=== PATIENT | female | born 1970 | race Caucasian/White ===

== ENCOUNTER 2020-06-01 19:28 | Inpatient (IN) | payer MEDICAID, SELFPAY ==
[~2020-06-01] VITALS: Ht 167.6 cm; Wt 73.5 kg
[2020-06-01 20:36] VITALS: BP 156/93
--- NOTE | 2020-06-01 20:40 | NUR ---
SEEN AND EXAMINED BY AYDEN WITH ORDERS AND CARRIED OUT.
[2020-06-01 23:04] LABS: BASOPHILS % (AUTO) 0.2 % (0.0-2.0); EOSINOPHILS # (AUTO) 0.1 K/uL (0-0.4); EOSINOPHILS % (AUTO) 0.6 % (0.0-4.0); HEMATOCRIT 39.8 % (36-48); HEMOGLOBIN 12.8 g/dL (12.0-16.0); LYMPHOCYTES # (AUTO) 1.4 K/uL (2.5-16.5); MEAN CORPUSCULAR HEMOGLOBIN 25 pg (27-31); MEAN CORPUSCULAR HGB CONC 32 g/dL (33-37); MEAN CORPUSCULAR VOLUME 77.4 fL (80-94); MONOCYTES # (AUTO) 0.8 K/uL (0.8-1.0); MONOCYTES % (AUTO) 6.3 % (1.7-9.3); NEUTROPHILS # (AUTO) 9.7 K/uL (1.8-7.7); NEUTROPHILS % (AUTO) 80.9 % (42.2-75.2); PLATELET COUNT (AUTO) 362 K/uL (140-450); RED BLOOD CELL COUNT(AUTO) 5.14 MIL/uL (4.20-5.40); RED CELL DISTRIBUTION WIDTH 18.3 % (11.6-13.7)
--- NOTE | 2020-06-01 23:05 | NUR ---
TO BED 3
--- NOTE | 2020-06-01 23:07 | NUR ---
AMBULATED TO BR. BEST OBTAINED
[2020-06-01] MEDS ORDERED: KETOROLAC 30 MG/ML VIAL IVP ONE (23:20)
[2020-06-01] MEDS ORDERED: PROCHLORPERAZINE 5 MG TAB PO STA (23:20)
[2020-06-01] MEDS ORDERED: DEXAMETHASONE 10 MG/ML VIAL IVP STA (23:20)
--- NOTE | 2020-06-01 23:30 | NUR ---
PATIENT PRESENTS TO ED WITH C/O GENERAL WEAKNESS AND MALAISE . PT STATES COVI (+). DENIES N/V/D; SKIN IS PINK/WARM/DRY; GAIT; LUNGS CLEAR BL; HR EVEN AND REGULAR VSS; PATIENT POSITIONED FOR COMFORT; HOB ELEVATED; BEDRAILS UP X2; BED DOWN. ER MD MADE AWARE OF PT STATUS.
[2020-06-01 23:32] LABS: ALBUMIN 3.3 g/dL (3.4-5.0); CARBON DIOXIDE 24.6 mmol/L (21-32); CREATININE 0.9 mg/dL (0.6-1.3); POTASSIUM 3.6 mmol/L (3.5-5.1); TOTAL BILIRUBIN 0.3 mg/dL (0.0-1.0)
[2020-06-01] MEDS ORDERED: ASPIRIN 81 MG TAB.CHEW PO ONE (23:50)
--- NOTE | 2020-06-01 23:55 | NUR ---
20G SL ESTABLISHED LEFT HAND
--- NOTE | 2020-06-02 00:10 | NUR ---
MEDS ORDERED. IS TEARFUL. REASSURANCE GIVEN.
[2020-06-02] MEDS ORDERED: hePARIN / DEXT 5% PREMIX 250 ML IV ONE ×2 (00:30→02:05)
[2020-06-02] MEDS ORDERED: HEPARIN PER PHARMACY MC PRN ×4 (00:30→12:20)
[2020-06-02] MEDS ORDERED: POTASSIUM CHLORIDE 10 MEQ TABER PO PRN ×2 (00:40→08:35)
[2020-06-02] MEDS ORDERED: DOCUSATE SODIUM 100 MG GELCAP PO PRN (00:40)
[2020-06-02] MEDS ORDERED: ACETAMINOPHEN 325 MG TAB PO PRN (00:40)
[2020-06-02] MEDS ORDERED: ZOLPIDEM 5 MG TAB PO PRN (00:40)
[2020-06-02] MEDS ORDERED: guaiFENesin DM 200/20 MG-10 ML 10 ML UDC PO PRN (00:40)
[2020-06-02] MEDS ORDERED: ONDANSETRON 4 MG/2 ML VIAL IM/IVP PRN (00:40)
[2020-06-02] MEDS ORDERED: NITROGLYCERIN 0.4 MG TAB SL PRN (00:45)
[2020-06-02] MEDS ORDERED: ALBUTEROL HFA MDI 90 MCG/ACTUATION 8 GM INH PRN (00:50)
[2020-06-02 01:45] LABS: APPEARANCE,URINE CLEAR (CLEAR); BILIRUBIN,URINE NEGATIVE (NEGATIVE); BLOOD, URINE NEGATIVE (NEGATIVE); COLOR,URINE YELLOW (YELLOW); LEUKOCYTE ESTERASE ,URINE NEGATIVE (NEGATIVE); NITRITE, URINE NEGATIVE (NEGATIVE); UGLUCOSE NEGATIVE (NEGATIVE)
[2020-06-02 01:47] LABS: PROTHROMBIN TIME 10.1 secs (10.8-13.4)
[2020-06-02 01:55] LABS: CHOL/HDL RATIO 5.9 (1-4.5); FREE T4 (FREE THYROXINE) 1.18 ng/dL (0.76-1.46); THYROID STIMULATING HORMONE 1.13 uIU/mL (0.34-3.74)
--- NOTE | 2020-06-02 02:05 | NUR ---
REPEAT EKG IN PROGRESS
[2020-06-02 02:11] LABS: BARBITURATE, URINE NEGATIVE ng/ml (NEG <=200); BENZODIAZEPINE, URINE NEGATIVE ng/mL (NEG <=200); CANNABINOID, URINE NEGATIVE ng/mL (NEG <=50); COCAINE, URINE NEGATIVE ng/mL (NEG <=300); OPIATE, URINE NEGATIVE ng/mL (NEG <=2000); PHENCYCLIDINE SCREEN,URINE NEGATIVE ng/mL (NEG <=25)
[2020-06-02] MEDS ORDERED: hePARIN / DEXT 5% PREMIX 250 ML IV SCH ×2 (02:15→02:20)
[2020-06-02] MEDS ORDERED: cefTRIAXone 1,000 MG VIAL ONE (03:43)
[2020-06-02] MEDS: NACL 0.9% 1,000 ML IV SCH ×2 (04:00→09:38)
--- NOTE | 2020-06-02 06:00 | NUR ---
RESTING COMFORTABLY, SPEAKING ON MARY KATE PHONE. CM REMAINS SR WITHOUT ECTOPY. PT SMILING. "IM FEELING BETTER"
--- NOTE | 2020-06-02 07:00 | NUR ---
RECEIVED REPORT FROM HELEN BLANCO. AAOX4. DENIES CP, STILL COUGH.
[2020-06-02] MEDS ORDERED: MAG SULF 2000 MG/WATER PREMIX 50 ML IV PRN (08:35)
[2020-06-02] MEDS ORDERED: ASPIRIN 81 MG TAB.CHEW ONE (08:59)
[2020-06-02] MEDS: PANTOPRAZOLE 40 MG TABEC PO SCH (09:06)
[2020-06-02] MEDS: METOPROLOL 25 MG TAB PO SCH ×2 (09:06→21:39)
[2020-06-02] MEDS: ECOTRIN 81 MG TABEC PO SCH (09:06)
[2020-06-02] MEDS: ASCORBIC ACID 500 MG TAB PO SCH (09:07)
[2020-06-02] MEDS: AZITHROMYCIN 250 MG TAB PO SCH (09:07)
[2020-06-02] MEDS: ZINC SULF 220 MG CAP PO SCH (09:07)
[2020-06-02] MEDS: lisinopriL 5 MG TAB PO SCH (09:18)
--- NOTE | 2020-06-02 09:47 | NUR ---
DENIES CP AT THIS TIME.
--- NOTE | 2020-06-02 09:58 | NUR ---
TROPONIN 0.[address] NGUYEN
--- NOTE | 2020-06-02 10:57 | NUR ---
PATIENT HAS BEEN SCREENED AND CATEGORIZED MODERATE NUTRITION RISK. PATIENT WILL BE SEEN WITHIN 3-5 DAYS OF ADMISSION. 06/05/20 - 06/07/20 BERTO MATHEW MBA, RD
[2020-06-02] MEDS: HYDROcodone/APAP 7.5/325 MG 1 TAB PO PRN (12:33)
[2020-06-02] MEDS: hePARIN / DEXT 5% PREMIX 250 ML IV SCH ×2 (12:39→17:48)
--- NOTE | 2020-06-02 14:20 | NUR ---
Patient will be admitted to care of ANDREW DAY. Admited to TELE. Will go to room 126B. Belongings list completed. Report to ISRAEL BLANCO.
[2020-06-02 14:35] VITALS: BP 114/73
--- NOTE | 2020-06-02 14:35 | NUR ---
RECEIVED REPORT FROM ER NURSE DEE FOR CONTINUITY OF CARE. PATIENT IS AWAKE, ALERT, ABLE TO MAKE NEEDS KNOWN. RESPIRATORY EVEN AND UNLABORED. O2 SAT 98% IN ROOM AIR. DENIES SOB OR TROUBLE BREATHING. HX OF COVID POSITIVE. AN NEGATIVE, PCR PENDING. DROPLET ISOLATION, SIGN POSTED, OBSERVED BY ALL STAFFS. IV SITE ON LEFT HAND 22 G INFUSING HEPARIN DRIP FOR DVT. RIGHT AC 20 G INFUSING IVF NS @ 60ML/HR. BILATERAL LOWER EXTREMITIES EDEMA NOTED, PAIN WHEN PUT PRESSURE. MRSA NARES COLLECTED. V/S TAKEN. INTRODUCED THE HOSPITAL ENVIRONMENT, TV, CALL LIGHT. SAFETY MEASURES IN PLACE, WILL CONTINUE TO MONITOR.
--- NOTE | 2020-06-02 15:12 | NUR ---
PATIENT RESTING IN BED, WATCHING TV. NO ACUTE DISTRESS NOTED. IV HEPARIN INFUSING INDICATED. IVF INFUSING. SAFETY MEASURES IN PLACE, PATIENT KEPT COMFORTABLE. WILL CONTINUE TO MONITOR.
[2020-06-02 16:00] VITALS: BP 117/83
[2020-06-02] MEDS: ATORVASTATIN 20 MG TAB PO SCH (17:30)
--- NOTE | 2020-06-02 17:48 | NUR ---
5800 UNITS OF BOLUS HEPARIN GIVEN VIA IVP. ADJUSTED HEPARIN DRIP TO 1621 UNITS/ML PER PROTOCOL. SAFETY MEASURES IN PLACE, CALL LIGHT WITHIN REACH. WILL CONTINUE TO MONITOR.
--- NOTE | 2020-06-02 19:30 | NUR ---
ENDORSED PATIENT TO PALEONTOLOGY TEACHER RN FOR CONTINUITY OF CARE. PATIENT IN STABLE CONDITION.
--- NOTE | 2020-06-02 19:35 | NUR ---
RECEIVED PATIENT FROM AM SHIFT NURSE FOR CONTINUITY OF CARE. RESPIRATIONS EVEN, UNLABORED. SKIN WARM, DRY. IV SITE TO LEFT HAND 20G PATENT/INTACT, INFUSING HEPARIN WELL. IV SITE TO RIGHT AC 20G PATENT/INTACT, INFUSING FLUIDS WELL. NO C/O PAIN. NO S/S ACUTE DISTRESS. ABDOMEN SOFT, NONTENDER, NONDISTENDED. BOWEL SOUNDS ACTIVE X4 QUADRANTS. PATIENT CONTINENT OF B/B. PLAN OF CARE DISCUSSED. CALL LIGHT WITHIN REACH. ISOLATION PRECAUTIONS OBSERVED BY ALL STAFF.
[2020-06-02 20:00] VITALS: BP 126/85
--- NOTE | 2020-06-02 21:50 | NUR ---
DUE MEDS GIVEN. PATIENT AWAKE AND RESTING COMFORTABLY IN BED. NO S/S ACUTE DISTRESS. CALL LIGHT WITHIN REACH. ISOLATION PRECAUTIONS OBSERVED BY ALL STAFF.
--- NOTE | 2020-06-02 23:00 | NUR ---
PATIENT RESTING COMFORTABLY IN BED. NO S/S ACUTE DISTRESS. CALL LIGHT WITHIN REACH. ISOLATION PRECAUTIONS OBSERVED BY ALL STAFF.
[2020-06-03] VITALS: BP 154/85
[2020-06-03] MEDS: hePARIN / DEXT 5% PREMIX 250 ML IV SCH (01:07)
--- NOTE | 2020-06-03 01:11 | NUR ---
HEPARIN ADJUSTED PER PROTOCOL.
[2020-06-03] MEDS ORDERED: cefTRIAXone 1,000 MG VIAL ONE (03:10)
--- NOTE | 2020-06-03 03:34 | NUR ---
MADE ROUNDS. PATIENT IS ASLEEP. NO S/S ACUTE DISTRESS. CALL LIGHT WITHIN REACH.
[2020-06-03 04:00] VITALS: BP 109/77
--- NOTE | 2020-06-03 05:00 | NUR ---
PATIENT ASLEEP, EASILY AROUSABLE. CONTINUES ON HEPARIN DRIP, NO S/S BLEEDING NOTED. NO C/O PAIN. NO S/S ACUTE DISTRESS. CALL LIGHT WITHIN REACH. ISOLATION PRECAUTIONS OBSERVED BY ALL STAFF.
[2020-06-03 08:00] VITALS: BP 119/64
--- NOTE | 2020-06-03 08:00 | NUR ---
RECEIVED REPORT FROM RESTAURANT INSPECTOR FOR CONTINUITY OF CARE. PATIENT ALERT AWAKE ORIENTED X4, NOT IN DISTRESS NOTED. DENIES PAIN AT THIS TIME. ON MONITOR SHOWS SR. ON HEPARIN DRIP INFUSING WELL, WAITING FOR THE PTT RESULT. ISOLATION PROTOCOL OBSERVED. NEEDS ATTENDED. WILL CONTINUE TO MONITOR.
[2020-06-03 09:13] LABS: T4 (THYROXINE) 7.4 ug/dL (4.5-12.0)
[2020-06-03] MEDS: ZINC SULF 220 MG CAP PO SCH (09:20)
[2020-06-03] MEDS: AZITHROMYCIN 250 MG TAB PO SCH (09:20)
[2020-06-03] MEDS: lisinopriL 5 MG TAB PO SCH (09:20)
[2020-06-03] MEDS: ASCORBIC ACID 500 MG TAB PO SCH (09:20)
[2020-06-03] MEDS: ECOTRIN 81 MG TABEC PO SCH (09:21)
[2020-06-03] MEDS: PANTOPRAZOLE 40 MG TABEC PO SCH (09:21)
[2020-06-03] MEDS: METOPROLOL 25 MG TAB PO SCH ×2 (09:21→21:37)
[2020-06-03 09:38] LABS: ANION GAP 14.9 (8-16); CARBON DIOXIDE 22.9 mmol/L (21-32); POTASSIUM 3.8 mmol/L (3.5-5.1)
[2020-06-03 09:39] LABS: CREATININE 0.9 mg/dL (0.6-1.3)
[2020-06-03] MEDS: NACL 0.9% 1,000 ML IV SCH (10:00)
--- NOTE | 2020-06-03 10:00 | NUR ---
PTT-54.3, NO CHANGE IN THE RATE. SCHEDULED NEST PTT AT 1730. NO C/O CHEST PAIN AND SOB. WILL CONTINUE TO MONITOR.
[2020-06-03 10:12] LABS: RED BLOOD CELL COUNT(AUTO) 4.85 MIL/uL (4.20-5.40); WHITE BLOOD COUNT (AUTO) 11.8 K/uL (4.8-10.8)
[2020-06-03 10:13] LABS: HEMATOCRIT 37.7 % (36-48); HEMOGLOBIN 12.1 g/dL (12.0-16.0); LYMPHOCYTES % (AUTO) 18.8 % (20.5-51.1); MEAN CORPUSCULAR HEMOGLOBIN 25 pg (27-31); MEAN CORPUSCULAR HGB CONC 32 g/dL (33-37); MEAN CORPUSCULAR VOLUME 77.8 fL (80-94); NEUTROPHILS % (AUTO) 70.4 % (42.2-75.2); PLATELET COUNT (AUTO) 376 K/uL (140-450); RED CELL DISTRIBUTION WIDTH 18.3 % (11.6-13.7)
[2020-06-03 10:14] LABS: BASOPHILS % (AUTO) 0.4 % (0.0-2.0); EOSINOPHILS # (AUTO) 0.2 K/uL (0-0.4); EOSINOPHILS % (AUTO) 1.2 % (0.0-4.0); LYMPHOCYTES # (AUTO) 2.1 K/uL (2.5-16.5); MONOCYTES % (AUTO) 8.9 % (1.7-9.3); NEUTROPHILS # (AUTO) 7.8 K/uL (1.8-7.7)
--- NOTE | 2020-06-03 11:26 | NUR ---
SOCIAL WORK NOTE: Patient's Orientation Person Situation Place Time Information Provided By PATIENT Comments SW WAS UNABLE TO MEET PATIENT AT BEDSIDE DUE TO MEDICAL CONDITION. SW COMPLETED ASSESSMENT WITH PATIENT TELEPHONICALLY WITH DRESSING ROOM ATTENDANT PATIENCE [id number]. Supervisor Uranium Processing, Realtionship and Phone Number FERNANDA VILLAGOMEZ [phone] Healthcare Power of Bookkeeping Teacher No Does Patient Have a POLST No Identifying Problems No Social Work Triggers Is A Social Work Consult Needed No Mandate Report Filed No Explanation Of Identifying Problems PATIENT IS A 49-YEAR-OLD FEMALE ADMITTED FOR CHEST PAIN AND ELEVATED TROP. PATIENT HAS PMHX OF DIABETES AND OBESITY. PATIENT REPORTED NO HISTORY OF MENTAL HEALTH OR SUBSTANCE ABUSE. Admitted From Home Pre-Admission Level Of Functioning Status Independent/Ambulatory Prior Resources/Services Used In Last 12 Months No Prior Resources Used Prior DME No Prior DME Used Dialysis Comments N/A Living Situation House Rents A Room Other Living Situation/Comment PATIENT STATED THAT SHE RENTS A ROOM FROM [facility]. Patient Had Caregiver No Home Support No Caregiver Issues Financial Issues No Known Financial Issue Referral To The Financial Counselor Needed No Factors/Needs No D/C Needs Identified Pt/Rep Participated In Discharge Plan Yes Patient/Family Agress With Discharge Plan Yes Discharge Plan Comments TENTATIVE DISCHARGE PLAN IS FOR PATIENT TO RETURN HOME. DC Plan Status Initiated
[2020-06-03 12:00] VITALS: BP_SYST 119; BP_SYST 121; BP_DIAS 64; BP_DIAS 87
--- NOTE | 2020-06-03 14:27 | NUR ---
DISCHARGE PLANNING: THIS IS A 49 Y/O FEMALE PATIENT FROM HOME, WHO CAME IN DUE TO SOB. PAST MEDICAL HISTORY INCLUDE DIABETES, OBESITY. INITIAL DIAGNOSIS OF CHEST PAIN, ELEVATED TROPONIN. CURRENT LABS INCLUDE WBC 11.8, H/H 12.1/37.7, NA/K 140/3.8, NA/K 140/3.8, BUN/CREA 19/0.9, TROP 0.064, D DIMER PENDING, APTT 54.3. RAPID COVID TEST NEGATIVE, PCR PENDING. ON ROOM AIR, O2 SAT 100%. ON HEPARIN DRIP. ON AZITHROMYCIN, ROCEPHIN. PULMO, ID, AND CARDIO CONSULTS IN PLACE. DC PLAN PENDING ON PATIENT'S RESPONSE TO TREATMENT.
--- NOTE | 2020-06-03 15:00 | NUR ---
HEPARIN DRIP DC'D AND EXPALINED PATIENT THE PLAN OF CARE. VERBALIZED UNDERSTANDING. WILL CONTINUE TO MONITOR.
[2020-06-03 16:00] VITALS: BP 103/68
[2020-06-03] MEDS: ATORVASTATIN 20 MG TAB PO SCH (18:11)
--- NOTE | 2020-06-03 18:31 | NUR ---
PATIENT DENIES PAIN, RESTING IN BED. DOWNGRADE TO MS. WILL ENDORSE TO THE NEXT SHIFT.
--- NOTE | 2020-06-03 19:18 | NUR ---
REPORT GIVEN TO APPLE PICKING SUPERVISOR FOR CONTINUITY OF CARE. IN STABLE CONDITION.
[2020-06-03] MEDS: HYDROcodone/APAP 7.5/325 MG 1 TAB PO PRN (19:57)
[2020-06-03 20:00] VITALS: BP 101/71
--- NOTE | 2020-06-03 20:00 | NUR ---
RECEIVED REPORT OF PT IN STABLE CONDITION.A,A&OX4.HAD COMPLAIN OF LEG PAIN NORCO PO AT 195 GIVEN.VS STABLE .VCALL LIGHT IN REACH.RESP.UNLABORED IN RA. HAS NON PITTING EDEMA ON BILT.LEGS.IVF INFUSING WELL.ANOTHER IV LINE IS SL.AND PATENT. WILL CONTINUE MONITORING.
[2020-06-03] MEDS: APIXABAN 2.5 MG TAB PO SCH (21:39)
[2020-06-03] MEDS ORDERED: MORPHINE SULFATE 4 MG/ML SYR IVP PRN (21:45)
[2020-06-03] MEDS ORDERED: MORPHINE SULFATE 4 MG/ML SYR ONE (21:47)
--- NOTE | 2020-06-03 22:30 | NUR ---
PT STILL HAD PAIN IT INCREASED TO 10.FAMILY CALLED ME I ALREADY WAS IN PT'S ROOM.TALKED TO HER AND EXPLAINED FOR HER THAT I GAVE HER MED AND I WILL CALL MD FOR IV PAIN MED.ALSO AFTER THAT I TALED W/OTHER FAMILY MEMBER W/PT'S CELL PHONE AND TOLD HIM THE SAME THINGS.SO GAVE HER PO SCHEDULED MEDS AND CALLED DR VICK .ORDER FOR MORPHINE RECEIVED,OVER RIDE IT AND GAVE IT TO PT AT 2152.AT 2215-->RG=156/78,HR=91,O2 SAT=95%.AT 2225-->HI=927/70,HR=80,O2 SAT=92%.PT IS STABLE BUT DROWSY.WILL MONITOR HER.
[2020-06-04] VITALS: BP 105/65
--- NOTE | 2020-06-04 00:02 | NUR ---
AT 2245-->QS=353/68,HR=81,O2 SAT=95%.AT 2315-->RS=931/65,HR=83,O2 SAT=94%.
[2020-06-04] MEDS: HYDROcodone/APAP 7.5/325 MG 1 TAB PO PRN ×2 (01:23→10:37)
--- NOTE | 2020-06-04 02:00 | NUR ---
HAD C/O RT LEG PAIN AGAIN NORCO PO GIVEN AT 0123.AT 0155-->BP=99/66,P=89,O2 SAT=95%.WILL CONT.MONITORING.
--- NOTE | 2020-06-04 03:19 | NUR ---
AT 0215-->BP=87/57,P=83,O2 SAT=98%.SENT MESSAGE FOR .DID NOT RESPOND.CALLED HIM AND LEFT MESSAGE FOR HIM.STILL WAITING TO RESPOND.RECHECK AT 0300-->BP=97/62,P=64,O2 SAT=96%.
[2020-06-04] MEDS: NACL 0.9% 1,000 ML IV SCH (03:24)
[2020-06-04 04:00] VITALS: BP 98/69
[2020-06-04 05:44] LABS: BASOPHILS % (AUTO) 0.3 % (0.0-2.0); EOSINOPHILS # (AUTO) 0.2 K/uL (0-0.4); EOSINOPHILS % (AUTO) 1.3 % (0.0-4.0); HEMATOCRIT 34.9 % (36-48); LYMPHOCYTES # (AUTO) 1.4 K/uL (2.5-16.5); LYMPHOCYTES % (AUTO) 11.3 % (20.5-51.1); MEAN CORPUSCULAR HEMOGLOBIN 25 pg (27-31); MEAN CORPUSCULAR HGB CONC 32 g/dL (33-37); MEAN CORPUSCULAR VOLUME 78.9 fL (80-94); MONOCYTES % (AUTO) 8.3 % (1.7-9.3); NEUTROPHILS % (AUTO) 78.8 % (42.2-75.2); PLATELET COUNT (AUTO) 316 K/uL (140-450); RED BLOOD CELL COUNT(AUTO) 4.43 MIL/uL (4.20-5.40); RED CELL DISTRIBUTION WIDTH 18.6 % (11.6-13.7); WHITE BLOOD COUNT (AUTO) 12.7 K/uL (4.8-10.8)
[2020-06-04 06:16] LABS: ANION GAP 10.8 (8-16); CARBON DIOXIDE 24.6 mmol/L (21-32); CREATININE 0.9 mg/dL (0.6-1.3); POTASSIUM 4.4 mmol/L (3.5-5.1)
--- NOTE | 2020-06-04 07:03 | NUR ---
AT 0415--->BP=97/67,P=63,Y3YDE=61%.PT HAS NO C/O PAIN AT PRESENT TIME.CALL LIGHT IN REACH.
--- NOTE | 2020-06-04 07:30 | NUR ---
RECEIVED PT ASLEEP. NO SOB NOTED. NO SIGNS OF PAIN AT THIS TIME. BED ON LOW POSITION, WITH 3 SIDE RAILS RAISED UP, CALL LIGHT WITHIN REACH. WILL CONTINUE TO MONITOR PT.
[2020-06-04 08:00] VITALS: BP 109/72
[2020-06-04] MEDS: ASCORBIC ACID 500 MG TAB PO SCH (10:34)
[2020-06-04] MEDS: APIXABAN 2.5 MG TAB PO SCH (10:34)
[2020-06-04] MEDS: METOPROLOL 25 MG TAB PO SCH (10:35)
[2020-06-04] MEDS: PANTOPRAZOLE 40 MG TABEC PO SCH (10:35)
[2020-06-04] MEDS: ZINC SULF 220 MG CAP PO SCH (10:36)
[2020-06-04] MEDS: lisinopriL 5 MG TAB PO SCH (10:36)
[2020-06-04] MEDS: ECOTRIN 81 MG TABEC PO SCH (10:37)
[2020-06-04 12:00] VITALS: BP 142/72
[2020-06-04] MEDS ORDERED: APIX5TAB PO (14:13)
[2020-06-04] MEDS ORDERED: HYDR-5122 PO (14:14)
--- NOTE | 2020-06-04 16:15 | NUR ---
DISCHARGE INSTRUCTIONS AND PRESCRIPTIONS GIVEN TO PT AND PT'S SISTER MNEDOZA ON THE PHON WHO SPEAKS MALAGASY WELL. BOTH VERBALIZED UNDERSTANDING AND THE NEED TO FOLLOW UP WITH PCP WITHIN 3-5 DAYS. ARM BANDS AND IV REMOVED, CANNULA TIP INTACT.
--- NOTE | 2020-06-04 16:30 | NUR ---
PT WHEELED TO THE FRONT LOBBY IN STABLE CONDITION. NO SOB NOTED. NO COMPLAINTS MADE. PT IS DISCHARGE TO SISTER.
== END 2020-06-04 16:34 | disposition home or self-care (01) | DRG 720 ==
LOC: MED 19:28 → MTU 06-02 00:50 → UNDOADMIN 06-02 00:50 → MTU 06-02 00:52 → MMU 06-02 13:53
DX: A41.9 Sepsis, unspecified organism (principal); I26.99 Other pulmonary embolism without acute cor pulmonale; I82.432 Acute embolism and thrombosis of left popliteal vein; J96.00 Acute respiratory failure, unspecified whether with hypoxia or hypercapnia; E44.1 Mild protein-calorie malnutrition; I82.401 Acute embolism and thrombosis of unspecified deep veins of right lower extremity; E11.9 Type 2 diabetes mellitus without complications; E66.9 Obesity, unspecified; E78.5 Hyperlipidemia, unspecified; E86.0 Dehydration; Z20.828 Contact with and (suspected) exposure to other viral communicable diseases; Z68.26 Body mass index [BMI] 26.0-26.9, adult; U07.1 COVID-19
CPT/HCPCS: 36415; 71045; 71275; 80048; 80053; 80305; 81003; 82150; 83036; 83615; 83690; 83735; 84100; 84436; 84439; 84443; 84479; 84484; 85025; 85379; 85610; 85651; 85730; 86140; 86886; 86900; 86901; 87081; 93005; 93970; 96374; 96375; 99291; J0696; J1100; J1644; J1885; J2270; J7060; Q0164; Q9967; U0003